=== PATIENT | female | born 1940 | race Caucasian/White ===

== ENCOUNTER 2020-03-02 12:11 | Emergency (ER) | payer MEDICARE ==
[~2020-03-02] VITALS: Ht 162.6 cm; Wt 56.2 kg
[2020-03-02 12:35] VITALS: Ht 162.6 cm; Wt 56.2 kg
[2020-03-02 15:13] LABS: BASOPHIL % 0.4 % (0.2-1.3); PLATELET COUNT 210 x10^3mcL (179-408); RED CELL DISTRIBUTION WIDTH 12.6 % (12.3-17.7)
[2020-03-02 17:16] LABS: UA SPECIFIC GRAVITY 1.015 (1.005-1.035); microscopic required? YES; urine erythrocyte TRACE (NEGATIVE)
[2020-03-02 17:25] LABS: CALCIUM 9.9 mg/dL (8.5-10.1); CARBON DIOXIDE 24.6 mmol/L (21-32); CHLORIDE SERUM 102 mmol/L (98-107); CREATININE SERUM 0.9 mg/dL (0.6-1.0); GLUCOSE SERUM 309 mg/dL (74-106); POTASSIUM SERUM 4.7 mmol/L (3.5-5.1); SODIUM SERUM 138 mmol/L (136-145)
[2020-03-02 17:32] LABS: ALBUMIN 4.4 g/dL (3.4-5.0); ALKALINE PHOSPHATASE 80 U/L (46-116); ALT/SGPT 58 U/L (14-59); AST/SGOT 28 U/L (15-37); BILIRUBIN TOTAL 0.36 mg/dL (0.20-1.00); TOTAL PROTEIN, SERUM 7.6 g/dL (6.4-8.2)
[2020-03-02 22:20] VITALS: BP 178/95
== END 2020-03-02 22:20 | disposition short-term general hospital (02) ==
LOC: ED 12:11
PROVIDERS: Emergency Medicine
DX: I62.9 Nontraumatic intracranial hemorrhage, unspecified (principal); E11.65 Type 2 diabetes mellitus with hyperglycemia; Z88.2 Allergy status to sulfonamides; Z20.828 Contact with and (suspected) exposure to other viral communicable diseases
CPT/HCPCS: J1200; J2930; Q9967; U0003